=== PATIENT | male | born 2000 | race African-American/Black ===

== ENCOUNTER 2023-02-05 19:07 | Emergency (ER) | payer OTHER ==
[~2023-02-05] VITALS: Ht 167.6 cm; Wt 77.1 kg
[2023-02-05 19:11] VITALS: BP 124/76; TEMP 100.3
[2023-02-05 20:15] LABS: PLATELET COUNT 232 K/uL (142-355)
== END 2023-02-05 21:20 | disposition home or self-care (01) ==
LOC: ED 19:07
PROVIDERS: Family Medicine
DX: J02.0 Streptococcal pharyngitis (principal); R50.9 Fever, unspecified; R51.9 Headache, unspecified
CPT/HCPCS: 36415; 85027; 87502; 87651; 96372; 99283; J0696

== ENCOUNTER 2023-02-06 07:45 | Emergency (ER) | payer OTHER ==
[~2023-02-06] VITALS: Ht 167.6 cm; Wt 68.0 kg
[2023-02-06 07:48] VITALS: BP 102/41; TEMP 98.1
[2023-02-06 08:19] LABS: PLATELET COUNT 252 K/uL (142-355)
[2023-02-06 08:25] LABS: POTASSIUM 3.9 mmol/L (3.6-5.2)
== END 2023-02-06 09:26 | disposition home or self-care (01) ==
LOC: ED 07:45
PROVIDERS: Family Medicine
PROC: 0T9B70Z Drainage of Bladder with Drainage Device, Via Natural or Artificial Opening (ICD-10-PCS; principal; 2023-02-06)
PROC: 009U3ZX Drainage of Spinal Canal, Percutaneous Approach, Diagnostic (ICD-10-PCS; 2023-02-06)
DX: G00.9 Bacterial meningitis, unspecified (principal); R56.9 Unspecified convulsions; Z11.52 Encounter for screening for COVID-19
CPT/HCPCS: 36591; 36600; 51702; 80053; 80307; 81002; 82150; 82805; 82945; 83605; 83690; 84157; 85027; 86140; 86592; 87040; 87070; 87205; 87635; 89051; 96361; 96365; 96366; 96374; 96375; 96376; 99285; J0696; J1100; J1953; J2001; J2543; J3360; J3370; U0003